=== PATIENT | female | born 1995 | race Two or more races ===

== ENCOUNTER 2018-08-21 06:30 | Emergency (ER) | payer SELFPAY ==
[2018-08-21] MEDS ORDERED: PREDNISONE 20 MG TABLET PO ONE (09:17)
[2018-08-21] MEDS ORDERED: DIPHENHYDRAMINE HCL 50 MG/ML VIAL IM ONE (09:17)
--- NOTE | 2018-08-21 09:23 | ER Document Report ---
ED Allergic Reaction - General Chief Complaint: Allergic Reaction Stated Complaint: POSSIBLE ALLERGIC REACTION Time Seen by Provider: 08/21/18 09:12 Mode of Arrival: Ambulatory Information source: Patient TRAVEL OUTSIDE OF THE [place] IN LAST 30 DAYS: No - HPI Patient complains to provider of: allergic reaction Onset: Just prior to arrival Notes: Patient is here with complaints of possible allergic reaction. The patient states she took her first dose of an unknown antibiotic this morning for urinary tract infection and developed swelling to her eyes. She does complain of some itching to the eyes. She denies any other rash. She denies any difficulty breathing or swallowing. She denies any chest pain or shortness of breath. No abdominal pain. No nausea, vomiting, diarrhea. She is taken no medications. She has a history of allergy to red dye, no other known allergies. She denies any new soaps, detergents, lotions, make-up or other things that would have come in contact only with her eyes. She denies any blurred or loss vision. She denies any eye pain. She complains of some throbbing pain to her eye lids that are swollen. This is mild, she denies any other complaints. - Related Data Allergies/Adverse Reactions: red dye Allergy (Verified 08/21/18 06:38) Past Medical History - Social History Smoking Status: Never Smoker Chew tobacco use (# tins/day): No Frequency of alcohol use: Social Drug Abuse: None Family History: Reviewed & Not Pertinent Patient has suicidal ideation: No Patient has homicidal ideation: No Neurological Medical History: Reports: Hx Migraine Renal/ Medical History: Denies: Hx Peritoneal Dialysis Review of Systems - Review of Systems -: Yes All other systems reviewed and negative Physical Exam - Vital signs Vitals: Temp Pulse Resp BP Pulse Ox 98.1 F 70 14 107/60 100 08/21/18 06:36 08/21/18 06:36 08/21/18 06:36 08/21/18 06:36 08/21/18 06:36 - Notes Notes: GENERAL: alert, cooperative, nontoxic, no distress. HEAD: normocephalic, atraumatic EYES: conjunctiva pink without discharge, mild swelling to the upper and lower eyelids. No redness. No tenderness. No vesicles. No rash. EARS: no external swelling, no external redness NOSE: atraumatic, no external swelling MOUTH/THROAT: mucous membranes moist and pink, posterior pharynx without erythema, swelling, exudate. No trismus or drooling. No lip, tongue swelling. Airway is patent. NECK: soft, supple, full range of motion, no meningismus. CHEST: no distress, lungs clear and equal throughout. No wheezing, rales, rhonchi. CARDIAC: regular rate and rhythm, no murmur, normal capillary refill, normal pulses. No peripheral edema noted. ABDOMEN: Soft, nontender. BACK: full range of motion, no CVA tenderness. EXTREMITIES: full range of motion of all extremities. No redness, no swelling. NEURO: alert and oriented x 3, no focal deficits, full range of motion of all extremities. PYSCH: appropriate mood, affect. Patient is cooperative. SKIN: pink, warm, dry, no rash. Course - Re-evaluation Re-evalutation: 08/21/18 09:20 Patient is nontoxic-appearing stable vitals. Patient here with complaints of possible allergic reaction. She took an antibiotic this morning for urinary tract infection and then developed some eye swelling. She believes that she is having an allergic reaction to the antibiotic. She denies putting anything specifically on her eyes that she would have been allergic to. At any rate, she does appear to be having a allergic reaction. No signs of anaphylaxis. No difficulty breathing or swallowing. Lungs are clear. Vital signs are stable. Patient is otherwise well-appearing. She was instructed to contact who prescribed her antibiotics to determine what she is taking to see if they can place her on a different antibiotic since she is unclear what she is taking. At this point the patient will be given a dose of Benadryl IM and prednisone orally will be discharged home with a prescription for prednisone and instructions to take Benadryl as needed for allergic reaction. Apply cool compresses to the eyes. Follow-up if not better in the next 2 days, sooner for any worsening symptoms, high fever, persistent vomiting, lip or tongue swelling, or for any further concerns. The patient's emergency department workup and current diagnosis were explained to the patient and or family. Follow-up instructions were provided. Medications if prescribed were discussed. Instructions for when to return to the emergency department including specific worrisome symptoms were discussed with the patient and/or family. - Vital Signs Vital signs: Temp Pulse Resp BP Pulse Ox 98.1 F 70 14 107/60 100 08/21/18 06:36 08/21/18 06:36 08/21/18 06:36 08/21/18 06:36 08/21/18 06:36 Discharge - Discharge Clinical Impression: Allergic reaction Qualifiers: Encounter type: initial encounter Qualified Code(s): T78.40XA - Allergy, unspecified, initial encounter Condition: Stable Disposition: HOME, SELF-CARE Instructions: Acute Allergic Reaction ([facility]), Acute Allergic Reaction to Drugs ([facility]) Additional Instructions: Stop taking the antibiotic. Contact the provider that prescribed the antibiotic and have them switch you to something different. Drink plenty of fluids. Take vvew-[id number]-[id number] Benadryl or Claritin. Take medications as prescribed. Apply cool compresses to your eyes. Follow-up if not better in the next 24 to 48 hours, sooner for worsening symptoms, high fever, difficulty breathing or swallowing, persistent vomiting, or for any further concerns. Prescriptions: Prednisone [Deltasone 20 mg Tablet] 3 tab PO DAILY 5 Days tablet Referrals: [facility] [Provider Group] - Follow up as needed
[2018-08-21 09:56] VITALS: BP 98/77
== END 2018-08-21 09:50 | disposition home or self-care (01) ==
LOC: ER 06:30
DX: T78.40XA Allergy, unspecified, initial encounter (principal); R22.0 Localized swelling, mass and lump, head; L29.9 Pruritus, unspecified; X58.XXXA Exposure to other specified factors, initial encounter; N39.0 Urinary tract infection, site not specified; R51 Headache
CPT/HCPCS: 99283; 96372; J1200; J7512

== ENCOUNTER 2018-09-16 16:37 | Emergency (ER) | payer OTHER ==
--- NOTE | 2018-09-16 17:10 | ER Document Report ---
ED Medical Screen (RME) - General Chief Complaint: Abdominal Pain Stated Complaint: ABDOMINAL PAIN Time Seen by Provider: 09/16/18 17:06 Mode of Arrival: Ambulatory Information source: Patient Notes: 23-year-old female presented to ED for pelvic cramping and vaginal bleeding. She states she is has had multiple home tests that were positive. She states last menstrual period was in June. She denies any fevers chills. Patient is alert oriented respirations regular and unlabored speaking in full sentences walks with even steady gait. I have greeted and performed a rapid initial assessment of this patient. A comprehensive ED assessment and evaluation of the patient, analysis of test results and completion of medical decision making process will be conducted by an additional ED providers. Dictation of this chart was performed using voice recognition software; therefore, there may be some unintended grammatical errors. TRAVEL OUTSIDE OF THE [place] IN LAST 30 DAYS: No - Related Data Allergies/Adverse Reactions: red dye Allergy (Verified 09/16/18 16:48) Past Medical History - Social History Chew tobacco use (# tins/day): No Frequency of alcohol use: Occasional Drug Abuse: None Neurological Medical History: Reports: Hx Migraine Renal/ Medical History: Denies: Hx Peritoneal Dialysis Physical Exam - Vital signs Vitals: Temp Pulse Resp BP Pulse Ox 98.9 F 105 H 16 132/64 H 99 09/16/18 16:52 09/16/18 16:52 09/16/18 16:52 09/16/18 16:52 09/16/18 16:52 Course - Vital Signs Vital signs: Temp Pulse Resp BP Pulse Ox 98.9 F 105 H 16 132/64 H 99 09/16/18 16:52 09/16/18 16:52 09/16/18 16:52 09/16/18 16:52 09/16/18 16:52
[2018-09-16 17:44] LABS: ABSOLUTE EOSINOPHILS # (AUTO) 0.1 10^3/uL (0.0-0.6); ABSOLUTE LYMPHOCYTES (AUTO) 2.3 10^3/uL (0.5-4.7); ABSOLUTE MONOCYTES (AUTO) 0.8 10^3/uL (0.1-1.4); ABSOLUTE NEUT (AUTO) 6.2 10^3/uL (1.7-8.2); BASOPHILS % (AUTO) 0.2 % (0-2); EOSINOPHILS % (AUTO) 0.9 % (0-6); HEMATOCRIT 33.8 % (36.0-47.0); HEMOGLOBIN 10.9 g/dL (12.0-15.5); LYMPHOCYTES % (AUTO) 24.3 % (13-45); MEAN CORPUSCULAR HEMOGLOBIN 27.2 pg (27.0-33.4); MEAN CORPUSCULAR HGB CONC 32.4 g/dL (32.0-36.0); MEAN CORPUSCULAR VOLUME 84 fl (80-97); MONOCYTES % (AUTO) 8.4 % (3-13); PLATELET COUNT 181 10^3/uL (150-450); RED BLOOD COUNT 4.02 10^6/uL (3.72-5.28); SEGMENTED NEUTROPHILS % (AUTO) 66.2 % (42-78); TOTAL CELLS COUNTED % (AUTO) 100 %; WHITE BLOOD COUNT 9.3 10^3/uL (4.0-10.5)
[2018-09-16 18:00] LABS: ALANINE AMINOTRANSFERASE 25 U/L (9-52); ALKALINE PHOSPHATASE 52 U/L (38-126); ANION GAP 10 (5-19); ASPARTATE AMINO TRANSFERASE 24 U/L (14-36); BILIRUBIN,DIRECT 0.1 mg/dL (0.0-0.4); BILIRUBIN,TOTAL 0.8 mg/dL (0.2-1.3); BLOOD UREA NITROGEN 6 mg/dL (7-20); CALCIUM 9.6 mg/dL (8.4-10.2); CARBON DIOXIDE 25 mmol/L (22-30); CHLORIDE 104 mmol/L (98-107); GLUCOSE 84 mg/dL (75-110); SODIUM 138.5 mmol/L (137-145)
--- NOTE | 2018-09-16 18:39 | RADIOLOGY REPORT (SQ) ---
EXAM DESCRIPTION: U/S OB TRANSVAGINAL W/O DOP COMPLETED DATE/TIME: 09/16/2018 6:19 pm REASON FOR STUDY: vaginal bleeding and COMPARISON: None. TECHNIQUE: Transvaginal static and realtime grayscale images acquired of the pelvis. Additional sami cted spectral and color Doppler images recorded. All images stored on PACs. bHCG: Not available. CLINICAL DATES: Not Available. LIMITATIONS: None. FINDINGS: FETUS: Single intrauterine with a yolk sac. ULTRASOUND EGA: 6 weeks 0 day ULTRASOUND LEONEL: 05/12/2019 EFW: Not applicable less than 20 weeks. CRL: 4 mm FHR: Too early to detect heart rate. SURVEY: Too early to assess. AMNIOTIC FLUID: Adequate amount. PLACENTA: Not yet developed due to early gestation. SUBCHORIONIC BLEED: No. SIZE OF BLEED: Not applicable. UTERUS: No masses. No anomalies. CERVICAL LENGTH: 3.3 Closed. RIGHT ADNEXA: Normal ovary with normal vascular flow. No adnexal free fluid. No adnexal masses. LEFT ADNEXA: Normal ovary with normal vascular flow. No adnexal free fluid. No adnexal masses. FREE FLUID: None. OTHER: No other significant finding. IMPRESSION: Single intrauterine gestation. Too early to detect heart rate. Recommend correla tion with serial beta hCGs and short-term sonographic follow-up. EGA 6 weeks 0 days Trimester of : First - 0 to 13 weeks. TECHNICAL DOCUMENTATION: JOB ID: [id number] [employer]- All Rights Reserved rev-09/16 Reading location - IP/workstation name: [email or web address]
[2018-09-16 19:01] LABS: APPEARANCE,URINE SLIGHTLY-CLOUDY; BILIRUBIN,URINE NEGATIVE (NEGATIVE); COLOR,URINE YELLOW; GLUCOSE, URINE NEGATIVE (NEGATIVE); KETONES,URINE NEGATIVE (NEGATIVE); LEUKOCYTE ESTERASE,URINE NEGATIVE (NEGATIVE); NITRITE,URINE NEGATIVE (NEGATIVE); PROTEIN,URINE NEGATIVE (NEGATIVE); URINE SPECIFIC GRAVITY 1.016; UROBILINOGEN,URINE NEGATIVE mg/dL (<2.0)
--- NOTE | 2018-09-16 19:11 | ER Document Report ---
ED GI/ - General Chief Complaint: Abdominal Pain Stated Complaint: ABDOMINAL PAIN Time Seen by Provider: 09/16/18 17:06 Primary Care Provider: [facility] [Provider Group] - Follow up as needed Mode of Arrival: Ambulatory Notes: 23-year-old female to the emergency department for evaluation of of cramping in the lower abdomen. Patient states that her breasts hurt and she has nausea and she thinks that she may be but decided to come to the emergency department to confirm her suspicions. Denies any vaginal bleeding at this time. No other complaints other than that she is hungry all of the time TRAVEL OUTSIDE OF THE [place] IN LAST 30 DAYS: No - HPI Patient complains to provider of: Abdominal pain Timing/Duration: Gradual Quality of pain: Achy Severity at maximum: Mild Severity in ED: Mild Pain Level: Denies - Related Data Allergies/Adverse Reactions: red dye Allergy (Verified 09/16/18 16:48) Past Medical History - General Information source: Patient - Social History Smoking Status: Never Smoker Chew tobacco use (# tins/day): No Frequency of alcohol use: Occasional Drug Abuse: None Lives with: Family Family History: Reviewed & Not Pertinent Patient has suicidal ideation: No Patient has homicidal ideation: No - Medical History Medical History: Negative Neurological Medical History: Reports: Hx Migraine Renal/ Medical History: Denies: Hx Peritoneal Dialysis Review of Systems - Review of Systems Notes: Constitutional: denies: Chills, Diaphoresis, Fever, Malaise, Weakness EENT: denies: Eye discharge, Blurred vision, Tearing, Double vision, Nose congestion, Nose discharge, Throat swelling, Mouth pain Cardiovascular: denies: Palpitations, Heart racing, Orthopnea, Dyspnea, Chest pain Respiratory: denies: Cough, Hurts to breathe, Wheezing, Shortness of breath Gastrointestinal: denies: Abdominal pain, Diarrhea, Nausea, Vomiting, Black stools, bright red blood in stool Genitourinary: denies: Burning, Dysuria, Discharge, Frequency, Flank pain, Hematuria Musculoskeletal: denies: Joint pain, Joint swelling, Muscle pain, Muscle stiffness, back pain Hematologic/Lymphatic: denies: Anemia, Easy bleeding, Easy bruising, Blood clots Neurological/Psychological: denies: Confusion, Dementia, Depression, Loss of consciousness Skin: No lesions, no masses, no skin breakdown, no abscesses Physical Exam - Vital signs Vitals: Temp Pulse Resp BP Pulse Ox 98.9 F 105 H 16 132/64 H 99 09/16/18 16:52 09/16/18 16:52 09/16/18 16:52 09/16/18 16:52 09/16/18 16:52 Interpretation: Normal - General General appearance: Appears well, Alert - HEENT Head: Normocephalic, Atraumatic Eyes: Normal Pupils: PERRL - Respiratory Respiratory status: No respiratory distress Chest status: Nontender Breath sounds: Normal Chest palpation: Normal - Cardiovascular Rhythm: Regular Heart sounds: Normal auscultation Murmur: No - Abdominal Inspection: Normal Distension: No distension Bowel sounds: Normal Tenderness: Nontender Organomegaly: No organomegaly - Back Back: Normal, Nontender - Extremities General upper extremity: Normal inspection, Nontender, Normal color, Normal ROM, Normal temperature General lower extremity: Normal inspection, Nontender, Normal color, Normal ROM, Normal temperature, Normal weight bearing. No: Gómez's sign - Neurological Neuro grossly intact: Yes Cognition: Normal Orientation: AAOx4 Jossue Coma Scale Eye Opening: Spontaneous Jossue Coma Scale Verbal: Oriented Jossue Coma Scale Motor: Obeys Commands Jossue Coma Scale Total: 15 Speech: Normal Motor strength normal: LUE, RUE, LLE, RLE Sensory: Normal - Psychological Associated symptoms: Normal affect, Normal mood - Skin Skin Temperature: Warm Skin Moisture: Dry Skin Color: Normal Course - Re-evaluation Re-evalutation: 09/16/18 19:11 Laboratory 09/16/18 09/16/18 09/16/18 17:18 17:18 17:18 WBC 9.3 RBC 4.02 Hgb 10.9 L Hct 33.8 L MCV 84 MCH 27.2 MCHC 32.4 RDW 13.0 Plt Count 181 Seg Neutrophils % 66.2 Lymphocytes % 24.3 Monocytes % 8.4 Eosinophils % 0.9 Basophils % 0.2 Absolute Neutrophils 6.2 Absolute Lymphocytes 2.3 Absolute Monocytes 0.8 Absolute Eosinophils 0.1 Absolute Basophils 0.0 Sodium 138.5 Potassium 4.0 Chloride 104 Carbon Dioxide 25 Anion Gap 10 BUN 6 L Creatinine 0.52 Est GFR ( Amer) > 60 Est GFR (Non-Af Amer) > 60 Glucose 84 Calcium 9.6 Total Bilirubin 0.8 Direct Bilirubin 0.1 Neonat Total Bilirubin Not Reportable Neonat Direct Bilirubin Not Reportable Neonat Indirect Bili Not Reportable AST 24 ALT 25 Alkaline Phosphatase 52 Total Protein 7.0 Albumin 4.0 Beta HCG, Quant 40183.00 H Total Beta HCG POSITIVE Urine Color Urine Appearance Urine pH Ur Specific [place] Urine Protein Urine Glucose (UA) Urine Ketones Urine Blood Urine Nitrite Urine Bilirubin Urine Urobilinogen Ur Leukocyte Esterase Urine WBC (Auto) Urine RBC (Auto) Urine Bacteria (Auto) Squamous Epi Cells Auto Urine Mucus (Auto) Urine Ascorbic Acid Blood Type O POSITIVE Rhogam Indicated RHOGAM NOT INDICATED 09/16/18 18:37 WBC RBC Hgb Hct MCV MCH MCHC RDW Plt Count Seg Neutrophils % Lymphocytes % Monocytes % Eosinophils % Basophils % Absolute Neutrophils Absolute Lymphocytes Absolute Monocytes Absolute Eosinophils Absolute Basophils Sodium Potassium Chloride Carbon Dioxide Anion Gap BUN Creatinine Est GFR ( Amer) Est GFR (Non-Af Amer) Glucose Calcium Total Bilirubin Direct Bilirubin Neonat Total Bilirubin Neonat Direct Bilirubin Neonat Indirect Bili AST ALT Alkaline Phosphatase Total Protein Albumin Beta HCG, Quant Total Beta HCG Urine Color YELLOW Urine Appearance SLIGHTLY-CLOUDY Urine pH 6.0 Ur Specific [place] 1.016 Urine Protein NEGATIVE Urine Glucose (UA) NEGATIVE Urine Ketones NEGATIVE Urine Blood NEGATIVE Urine Nitrite NEGATIVE Urine Bilirubin NEGATIVE Urine Urobilinogen NEGATIVE Ur Leukocyte Esterase NEGATIVE Urine WBC (Auto) 6 Urine RBC (Auto) 0 Urine Bacteria (Auto) TRACE Squamous Epi Cells Auto 1 Urine Mucus (Auto) OCC Urine Ascorbic Acid NEGATIVE Blood Type Rhogam Indicated Obstetrics Ultrasound 09/16/18 17:07 IMPRESSION: Single intrauterine gestation. Too early to detect heart rate. Recommend correlation with serial beta hCGs and short-term sonographic follow-up. EGA 6 weeks 0 days Trimester of : First - 0 to 13 weeks. Previous labs confirm positive no RhoGam is indicated. At this time appears to have an IUP. Nothing further. Will be follow-up for OB and DC at this time. - Vital Signs Vital signs: Temp Pulse Resp BP Pulse Ox 98.9 F 105 H 16 132/64 H 99 09/16/18 16:52 09/16/18 16:52 09/16/18 16:52 09/16/18 16:52 09/16/18 16:52 - Laboratory Result Diagrams: 09/16/18 17:18 09/16/18 17:18 Laboratory results interpreted by me: 09/16/18 09/16/18 17:18 17:18 Hgb 10.9 L Hct 33.8 L BUN 6 L Beta HCG, Quant 60870.00 H Discharge - Discharge Clinical Impression: First trimester Condition: Good Disposition: HOME, SELF-CARE Instructions: (OM) Additional Instructions: Follow-up with your [facility]W [facility]AIGHTENER of choice. Return for any worsening symptoms or concerns. Prescriptions: Multivitamin with Folic Acid [[facility] One Daily Essential Tablet] 400 mcg PO DAILY 90 Days #90 tablet Referrals: [facility] [Provider Group] - Follow up as needed
[2018-09-16 20:12] VITALS: BP 129/68
== END 2018-09-16 20:12 | disposition home or self-care (01) ==
LOC: ER 16:37
DX: O26.891 Other specified pregnancy related conditions, first trimester (principal); R10.30 Lower abdominal pain, unspecified; R11.0 Nausea; O92.29 Other disorders of breast associated with pregnancy and the puerperium; Z3A.00 Weeks of gestation of pregnancy not specified; Z91.048 Other nonmedicinal substance allergy status
CPT/HCPCS: 36415; 76817; 80053; 81001; 84702; 85025; 86900; 86901; 99284

== ENCOUNTER 2018-10-01 06:10 | Emergency (ER) | payer OTHER ==
[2018-10-01 06:20] VITALS: BP 124/68
== END 2018-10-01 08:13 | disposition left against medical advice (07) ==
LOC: ER 06:10
DX: Z53.21 Procedure and treatment not carried out due to patient leaving prior to being seen by health care provider (principal)

== ENCOUNTER 2019-01-26 14:24 | Outpatient (CLI) | payer OTHER ==
[2019-01-26 14:30] VITALS: BP 135/66
[2019-01-26 15:42] LABS: APPEARANCE,URINE CLEAR; BILIRUBIN,URINE NEGATIVE (NEGATIVE); COLOR,URINE YELLOW; GLUCOSE, URINE NEGATIVE (NEGATIVE); KETONES,URINE TRACE mg/dL (NEGATIVE); LEUKOCYTE ESTERASE,URINE NEGATIVE (NEGATIVE); NITRITE,URINE NEGATIVE (NEGATIVE); PROTEIN,URINE NEGATIVE (NEGATIVE); URINE SPECIFIC GRAVITY 1.019; UROBILINOGEN,URINE NEGATIVE mg/dL (<2.0)
[2019-01-26 16:02] LABS: URINE AMPHETAMINES SCREEN NEGATIVE; URINE BARBITURATES SCREEN NEGATIVE; URINE BENZODIAZEPINES SCREEN NEGATIVE; URINE COCAINE SCREEN NEGATIVE; URINE MARIJUANA (THC) SCREEN NEGATIVE; URINE METHADONE SCREEN NEGATIVE; URINE PHENCYCLIDINE SCREEN NEGATIVE
[2019-01-26 16:21] LABS: ABSOLUTE EOSINOPHILS # (AUTO) 0.1 10^3/uL (0.0-0.6); ABSOLUTE LYMPHOCYTES (AUTO) 2.4 10^3/uL (0.5-4.7); ABSOLUTE MONOCYTES (AUTO) 1.5 10^3/uL (0.1-1.4); ABSOLUTE NEUT (AUTO) 8.7 10^3/uL (1.7-8.2); BASOPHILS % (AUTO) 0.1 % (0-2); EOSINOPHILS % (AUTO) 0.6 % (0-6); HEMATOCRIT 28.2 % (36.0-47.0); HEMOGLOBIN 9.3 g/dL (12.0-15.5); LYMPHOCYTES % (AUTO) 18.6 % (13-45); MEAN CORPUSCULAR HEMOGLOBIN 28.2 pg (27.0-33.4); MEAN CORPUSCULAR HGB CONC 32.9 g/dL (32.0-36.0); MEAN CORPUSCULAR VOLUME 86 fl (80-97); MONOCYTES % (AUTO) 11.9 % (3-13); PLATELET COUNT 151 10^3/uL (150-450); RED BLOOD COUNT 3.29 10^6/uL (3.72-5.28); SEGMENTED NEUTROPHILS % (AUTO) 68.8 % (42-78); TOTAL CELLS COUNTED % (AUTO) 100 %; WHITE BLOOD COUNT 12.7 10^3/uL (4.0-10.5)
[2019-01-26 16:40] LABS: ALBUMIN 3.3 g/dL (3.5-5.0); ALKALINE PHOSPHATASE 75 U/L (38-126); ANION GAP 7 (5-19); ASPARTATE AMINO TRANSFERASE 23 U/L (14-36); BILIRUBIN,TOTAL 0.5 mg/dL (0.2-1.3); BLOOD UREA NITROGEN 8 mg/dL (7-20); CALCIUM 9.3 mg/dL (8.4-10.2); CARBON DIOXIDE 24 mmol/L (22-30); CHLORIDE 105 mmol/L (98-107); GLUCOSE 77 mg/dL (75-110); POTASSIUM 3.9 mmol/L (3.6-5.0); TOTAL PROTEIN 6.3 g/dL (6.3-8.2); URIC ACID 3.2 mg/dL (2.5-6.2)
--- NOTE | 2019-01-26 16:57 | RADIOLOGY REPORT (SQ) ---
EXAM DESCRIPTION: U/S ABDOMEN LIMITED W/O DOP COMPLETED DATE/TIME: 01/26/2019 4:36 pm REASON FOR STUDY: right upper quad pain COMPARISON: None. TECHNIQUE: Dynamic and static grayscale images acquired of the abdomen and recorded on PACS. Additio nal selected color Doppler and spectral images recorded. LIMITATIONS: None. FINDINGS: PANCREAS: No masses. Visualized pancreatic duct normal caliber. LIVER: No masses. Echotexture normal. LIVER VASCULATURE: Normal directional flow of the main portal vein and hepatic veins. GALLBLADDER: Contracted. No stones. Normal wall thickness. No pericholecystic fluid. ULTRASOUND-DETECTED BRYAN'S SIGN: Negative. INTRAHEPATIC DUCTS AND COMMON DUCT: CBD and intrahepatic ducts normal caliber. No filling defects. INFERIOR VENA CAVA: Normal flow. AORTA: No aneurysm. RIGHT KIDNEY: Normal size. Normal echogenicity. No solid or suspicious masses. No hydronephrosis. No calcifications. PERITONEAL AND RIGHT PLEURAL SPACE: No ascites or effusions. OTHER: Intrauterine documented but not evaluated. cardiac activity with heart rate o f 150 beats per minute. IMPRESSION: NORMAL RIGHT UPPER QUADRANT ULTRASOUND. TECHNICAL DOCUMENTATION: JOB ID: [id number] [employer]- All Rights Reserved Reading location - IP/workstation name: [email or web address]
[2019-01-26] MEDS ORDERED: FAMOTIDINE 20 MG TABLET ONE (18:32)
[2019-01-26] MEDS ORDERED: ACETAMINOPHEN 325 MG TABLET ONE (18:32)
[2019-01-26] MEDS ORDERED: ACETAMINOPHEN 325 MG TABLET PO ONE (19:31)
== END 2019-01-26 19:32 | disposition home or self-care (01) ==
LOC: EDSTATUS 14:33 → LC 14:36
PROVIDERS: ATTEND Obstetrics & Gynecology
PROC: 4A1HXCZ Monitoring of Products of Conception, Cardiac Rate, External Approach (ICD-10-PCS; principal; 2019-01-26)
DX: O26.892 Other specified pregnancy related conditions, second trimester (principal); R10.11 Right upper quadrant pain; Z3A.25 25 weeks gestation of pregnancy
CPT/HCPCS: 36415; 76705; 80053; 80307; 81001; 82150; 83615; 83690; 84550; 85025

== ENCOUNTER 2019-04-24 18:30 | Outpatient (CLI) | payer OTHER ==
[2019-04-24 19:16] LABS: APPEARANCE,URINE CLEAR; BILIRUBIN,URINE NEGATIVE (NEGATIVE); COLOR,URINE YELLOW; GLUCOSE, URINE NEGATIVE (NEGATIVE); KETONES,URINE NEGATIVE (NEGATIVE); LEUKOCYTE ESTERASE,URINE SMALL (NEGATIVE); NITRITE,URINE NEGATIVE (NEGATIVE); PROTEIN,URINE 30 mg/dL (NEGATIVE); URINE SPECIFIC GRAVITY 1.018; UROBILINOGEN,URINE NEGATIVE mg/dL (<2.0)
[2019-04-24 19:35] LABS: URINE AMPHETAMINES SCREEN NEGATIVE; URINE BARBITURATES SCREEN NEGATIVE; URINE BENZODIAZEPINES SCREEN NEGATIVE; URINE COCAINE SCREEN NEGATIVE; URINE MARIJUANA (THC) SCREEN NEGATIVE; URINE METHADONE SCREEN NEGATIVE; URINE PHENCYCLIDINE SCREEN NEGATIVE
--- NOTE | 2019-04-24 20:30 | Non Stress Test Report ---
Non Stress Test Datetime Report Generated by CPN: 04/24/2019 20:29 DEMOGRAPHIC EGA NST: 37.5 INDICATION Indication for Study (NST) Other: labor check MONITORING Time on Monitor: 04/24/2019 18:46 Time off Monitor: 04/24/2019 20:13 NST Duration: 87 NST INTERVENTIONS NST Interventions: None Physician Notified NST: Dr Mc BABY A: [id number] BABY A Movement : Present Contraction Frequency : 4-9.5 FHR Baseline : 135 Accelerations : 15X15 Decelerations : None Variability : Moderate 6-25bpm NST Review: Meets Criteria for Reactive NST NST Review and Verified By : Louise Sepulveda RN NST Results: Reactive NST REPORT Report Trigger: Send Report
== END 2019-04-24 20:20 | disposition home or self-care (01) ==
LOC: LC 18:30
PROVIDERS: ATTEND Obstetrics & Gynecology
PROC: 4A1HXCZ Monitoring of Products of Conception, Cardiac Rate, External Approach (ICD-10-PCS; principal; 2019-04-24)
DX: O47.1 False labor at or after 37 completed weeks of gestation (principal); Z3A.38 38 weeks gestation of pregnancy
CPT/HCPCS: 59025; 80307; 81005

== ENCOUNTER 2020-01-30 18:20 | Emergency (ER) | payer OTHER ==
[2020-01-30 18:27] VITALS: BP 117/62
--- NOTE | 2020-01-30 18:59 | ER Document Report ---
HPI - HPI Patient complains to provider of: left ear pain Time Seen by Provider: 01/30/20 18:50 Pain Level: 1 Context: 24-year-old female who states she is approximately 11 weeks , 3 para 2 presents to the emergency room complaining of worsening left ear pain for the past 3 months. She denies any trauma or injury. States she has not been seen for prior today. Has been taking Tylenol with some relief. Denies any recent swimming or flying. States she is feels like there is fluid in it but has not had any drainage. Has not been seen for her ear pain prior to today. Associated Symptoms: None Exacerbated by: Other - Touching Relieved by: Remaining still Similar symptoms previously: No Recently seen / treated by doctor: No - ROS Systems Reviewed and Negative: Yes All other systems reviewed and negative - EENT EENT: REPORTS: Ear Pain - left ear - NEURO Neurology: DENIES: Headache - REPRODUCTIVE Reproductive: DENIES: : Past Medical History - General Information source: Patient - Social History Smoking Status: Never Smoker Chew tobacco use (# tins/day): No Frequency of alcohol use: None Drug Abuse: None Family History: Reviewed & Not Pertinent Patient has homicidal ideation: No Neurological Medical History: Reports: Hx Migraine Renal/ Medical History: Denies: Hx Peritoneal Dialysis Vertical Provider Document - CONSTITUTIONAL Agree With Documented VS: Yes Exam Limitations: No Limitations General Appearance: Mild Distress - INFECTION CONTROL TRAVEL OUTSIDE OF THE [place] IN LAST 30 DAYS: No - HEENT HEENT: Atraumatic, Normocephalic, Tympanic Membrane Red, Tympanic Membrane Bulging - Left tympanic membrane erythematous and bulging there is a moderate amount of purulent drainage noted in the outer ear canal with erythema and swelling. Right outer ear canal without erythema or swelling. Right tympanic membrane intact.. negative: Pharyngeal Exudate, Pharyngeal Erythema - NECK Neck: Normal Inspection, Supple. negative: Lymphadenopathy-Left, Lymphadenopathy-Right - RESPIRATORY Respiratory: Breath Sounds Normal, No Respiratory Distress - CARDIOVASCULAR Cardiovascular: Regular Rate, Regular Rhythm, No Murmur - NEURO Level of Consciousness: Awake, Alert, Appropriate Motor/Sensory: No Motor Deficit, No Sensory Deficit - DERM Integumentary: Warm, Dry, No Rash Course - Re-evaluation Re-evalutation: 01/30/20 18:55 Counseled patient on diagnosis and need for oral antibiotics as well as eardrops. She was counseled on the importance of an outpatient follow-up with ENT. She will be provided with on-call physician. Tylenol as needed for pain. Patient was given strict return to the emergency room guidelines. Return for any new or worsening symptoms. All questions were answered. Patient verbalized understanding and agrees with plan of care. - Vital Signs Vital signs: Temp Pulse Resp BP Pulse Ox 98.0 F 74 16 117/62 100 01/30/20 18:49 01/30/20 18:26 01/30/20 18:26 01/30/20 18:26 01/30/20 18:26 Discharge - Discharge Clinical Impression: Left otitis media Qualifiers: Otitis media type: unspecified Qualified Code(s): H66.92 - Otitis media, unspecified, left ear Left otitis externa Qualifiers: Otitis externa type: unspecified type Chronicity: acute Qualified Code(s): H60.502 - Unspecified acute noninfective otitis externa, left ear Condition: Stable Disposition: HOME, SELF-CARE Instructions: Acetaminophen, Use of Ear Drops ([facility]), Otitis Externa ([facility]), Otitis Media ([facility]) Additional Instructions: Use eardrops and take oral antibiotics as prescribed. Tylenol as needed for pain. Outpatient follow-up with ENT as discussed. Return to the emergency room for any new or worsening symptoms. Prescriptions: Amoxicillin 1 tab PO TID #30 tab Neomy Sulf/Polymyx B Sulf/Hc [Cortisporin Otic Susp] 4 drop LFT_EAR QID #1 bottle Referrals: RINA HUFF MD [ACTIVE PROVISIONAL STAFF] - Follow up as needed ANDREWS MADDOX DO [ASSOCIATE] - Follow up tomorrow (Call as soon as possible for an outpatient follow-up appointment)
== END 2020-01-30 19:10 | disposition home or self-care (01) ==
LOC: ER 18:20
DX: O26.899 Other specified pregnancy related conditions, unspecified trimester (principal); H66.92 Otitis media, unspecified, left ear; H60.502 Unspecified acute noninfective otitis externa, left ear; H92.02 Otalgia, left ear; Z3A.00 Weeks of gestation of pregnancy not specified
CPT/HCPCS: 99283

== ENCOUNTER 2020-02-25 20:56 | Emergency (ER) | payer OTHER ==
--- NOTE | 2020-02-25 21:26 | ER Document Report ---
ED Medical Screen (RME) - General Stated Complaint: ABDOMINAL PAIN Time Seen by Provider: 02/25/20 21:23 Notes: Patient presents complaining of vaginal bleeding. Patient is currently 16 weeks G3, P1. Patient does report lower abdominal pain. No urinary symp toms, no nausea or vomiting. Patient's blood type is O+ after review of previous records. I have greeted and performed a rapid initial assessment of this patient. A comprehensive ED assessment and evaluation of the patient, analysis of test results and completion of the medical decision making process will be conducted by additional ED providers. TRAVEL OUTSIDE OF THE [place] IN LAST 30 DAYS: No - Related Data Allergies/Adverse Reactions: red dye Allergy (Verified 02/25/20 21:14) Past Medical History Neurological Medical History: Reports: Hx Migraine Renal/ Medical History: Denies: Hx Peritoneal Dialysis Physical Exam - Vital signs Vitals: Temp Pulse Resp BP Pulse Ox 98.5 F 94 18 130/59 H 98 02/25/20 21:06 02/25/20 21:06 02/25/20 21:06 02/25/20 21:06 02/25/20 21:06 - Abdominal Inspection: Gravid female Tenderness: Tender - Lower pelvic Course - Vital Signs Vital signs: Temp Pulse Resp BP Pulse Ox 98.5 F 94 18 130/59 H 98 02/25/20 21:06 02/25/20 21:06 02/25/20 21:06 02/25/20 21:06 02/25/20 21:06
--- NOTE | 2020-02-25 22:03 | ER Document Report ---
ED GI/ - General Chief Complaint: Vaginal Bleeding Stated Complaint: ABDOMINAL PAIN Time Seen by Provider: 02/25/20 21:23 Primary Care Provider: CAMILLA PARSON DO [Primary Care Provider] - Follow up as needed Notes: Patient is a 24-year-old female that comes emergency department for chief complaint of vaginal bleeding and intermittent cramping. Patient is G3, P1 at 16 weeks gestation by first trimester ultrasound. Patient states that she was just sitting down when she started feeling the bleeding, she states she bled briefly slightly heavier with possibly 1 clot and then started slowing down. She reports that the cramps are occasionally sharp but she denies current abdominal pain. She denies dizziness or passing out. Pain has been only in the lower abdomen generally. Patient is currently on vitamins and iron, she follows with local INTELLIGENCE MANAGER, she denies any surgeries, she denies any past medical history other than a previous first trimester and second trimester spontaneous miscarriage. TRAVEL OUTSIDE OF THE [place] IN LAST 30 DAYS: No - Related Data Allergies/Adverse Reactions: red dye Allergy (Verified 02/25/20 21:14) Home Medications: PRE-NATALS Past Medical History - General Information source: Patient - Social History Smoking Status: Never Smoker Frequency of alcohol use: None Drug Abuse: None Lives with: Family Family History: Reviewed & Not Pertinent Neurological Medical History: Reports: Hx Migraine Renal/ Medical History: Denies: Hx Peritoneal Dialysis Surgical Hx: Negative - Immunizations Immunizations up to date: Yes Hx Diphtheria, Pertussis, Tetanus Vaccination: Yes Review of Systems - Review of Systems Constitutional: No symptoms reported EENT: No symptoms reported Cardiovascular: No symptoms reported Respiratory: No symptoms reported Gastrointestinal: No symptoms reported Genitourinary: No symptoms reported Female Genitourinary: See HPI Musculoskeletal: No symptoms reported Skin: No symptoms reported Hematologic/Lymphatic: No symptoms reported Neurological/Psychological: No symptoms reported Physical Exam - Vital signs Vitals: Temp Pulse Resp BP Pulse Ox 98.5 F 94 18 130/59 H 98 02/25/20 21:06 02/25/20 21:06 02/25/20 21:06 02/25/20 21:06 02/25/20 21:06 - Notes Notes: GENERAL: Alert, interacts well. No acute distress. HEAD: Normocephalic, atraumatic. EYES: Pupils equal, round, and reactive to light. Extraocular movements intact. ENT: Oral mucosa moist, tongue midline. Oropharynx unremarkable. Airway patent. LUNGS: Clear to auscultation bilaterally, no wheezes, rales, or rhonchi. No respiratory distress. Non-tender chest wall. HEART: Regular rate and rhythm. No murmur ABDOMEN: Soft and benign, very slightly distended consistent with gravid abdomen, no overt tenderness noted. No rigidity or guarding. EXTREMITIES: Moves all 4 extremities spontaneously. No edema, normal radial and dorsalis pedis pulses bilaterally. No cyanosis. BACK: no cervical, thoracic, lumbar midline tenderness. No saddle anesthesia, normal distal neurovascular exam. Moves all extremities in full range of motion. NEUROLOGICAL: Alert and oriented x3. Normal speech. Cranial nerves II through XII grossly intact. Strength 5/5 in all extremities. PSYCH: Normal affect, normal mood. SKIN: Warm, dry, normal turgor. No rashes or lesions noted. Course - Re-evaluation Re-evalutation: RhoGam was not ordered by triage but records do show that patient's blood type is O+. CBC shows hemoglobin of 10.2 but this is actually better than previous hemoglobin here. This is also not microcytic. Patient is already on iron. Chemistry unremarkable. Ultrasound reviewed and shows a living intrauterine , closed cervix, no noted abnormalities. I reevaluated patient, patient has no current symptoms, has had no additional bleeding. I discussed details at length, patient is very relieved, she has no additional complaints. Patient is less than 20 weeks therefore she will not go up to INTELLIGENCE MANAGER for labor check, patient has INTELLIGENCE MANAGER follow-up already planned coming up closely. Discussed recommendations, discussed return precautions at length, patient states appreciation and agreement. Stable and well-appearing at time of discharge. - Vital Signs Vital signs: Temp Pulse Resp BP Pulse Ox 98.5 F 94 18 130/59 H 98 02/25/20 21:06 02/25/20 21:06 02/25/20 21:06 02/25/20 21:06 02/25/20 21:06 - Laboratory Result Diagrams: 02/25/20 22:25 02/25/20 22:25 Laboratory results interpreted by me: 02/25/20 02/25/20 22:25 22:25 WBC 11.0 H Hgb 10.2 L Hct 30.8 L MCH 26.9 L RDW 14.3 H Sodium 134.6 L BUN 6 L Creatinine 0.46 L Discharge - Discharge Clinical Impression: Vaginal bleeding before 22 weeks gestation, Pelvic cramping Condition: Stable Disposition: HOME, SELF-CARE Additional Instructions: Fortunately at this time no concerning findings are seen. You have a living in the uterus with no complications that are seen. I recommend pelvic rest, avoid any significant physical activity including lifting, running, sexual intercourse, etc. until cleared by INTELLIGENCE MANAGER. Follow clos e with INTELLIGENCE MANAGER for additional monitoring and recheck. Take Tylenol if needed for pain. Return if you worsen including severe worsening pain, heavy bleeding, dizziness, passing out, or any other concerning or worsening symptoms. Forms: Return to Work Referrals: CAMILLA PARSON, [Primary Care Provider] - Follow up as needed
--- NOTE | 2020-02-25 22:33 | RADIOLOGY REPORT (SQ) ---
Ultrasound OB follow-up limited on 02/25/2020 at 9:40 PM CLINICAL INDICATION: , vaginal bleeding, pelvic pain COMPARISON: None this FINDINGS: Multiple sonographic images are obtained throughout the pelvis by transabdominal approach only, both transverse and sagittal images are obtained. Cervical length measures approximately 3.1 cm and the cervix appears closed. Single living intrauterine fetus is noted with cardiac activity with a heart rate 150 bpm. Right adnexa appears unremarkable although the right ovary was not visualized. The left ovary measures approximately 2.8 x 1.8 x 2.6 cm. Flow is demonstrated within left ovary. No adnexal mass or fluid collection is noted. Fetus is currently in cephalic presentation. Placenta is anterior in location with no evidence of placenta previa or abruption. No gross abnormality is noted on limited imaging. Estimated gestational age by measurements is an approximate 16 week one day gestation. Adequate amniotic fluid is noted. Maximum vertical pocket measures 4.5 cm. IMPRESSION: Single living approximate 16 week one day intrauterine fetus with no acute abnormality noted.
[2020-02-25 22:42] LABS: ABSOLUTE EOSINOPHILS # (AUTO) 0.1 10^3/uL (0.0-0.6); ABSOLUTE LYMPHOCYTES (AUTO) 2.9 10^3/uL (0.5-4.7); ABSOLUTE MONOCYTES (AUTO) 0.9 10^3/uL (0.1-1.4); ABSOLUTE NEUT (AUTO) 7.1 10^3/uL (1.7-8.2); BASOPHILS % (AUTO) 0.2 % (0-2); EOSINOPHILS % (AUTO) 0.6 % (0-6); HEMATOCRIT 30.8 % (36.0-47.0); HEMOGLOBIN 10.2 g/dL (12.0-15.5); LYMPHOCYTES % (AUTO) 26.5 % (13-45); MEAN CORPUSCULAR HEMOGLOBIN 26.9 pg (27.0-33.4); MEAN CORPUSCULAR HGB CONC 33.2 g/dL (32.0-36.0); MEAN CORPUSCULAR VOLUME 81 fl (80-97); MONOCYTES % (AUTO) 7.8 % (3-13); PLATELET COUNT 174 10^3/uL (150-450); RED CELL DISTRIBUTION WIDTH 14.3 % (11.5-14.0); SEGMENTED NEUTROPHILS % (AUTO) 64.9 % (42-78); TOTAL CELLS COUNTED % (AUTO) 100 %
[2020-02-25 22:50] LABS: ALBUMIN 3.5 g/dL (3.5-5.0); ALKALINE PHOSPHATASE 83 U/L (38-126); ANION GAP 10 (5-19); ASPARTATE AMINO TRANSFERASE 16 U/L (14-36); BILIRUBIN,TOTAL 0.6 mg/dL (0.2-1.3); BLOOD UREA NITROGEN 6 mg/dL (7-20); CALCIUM 8.8 mg/dL (8.4-10.2); CARBON DIOXIDE 22 mmol/L (22-30); CHLORIDE 103 mmol/L (98-107); GLUCOSE 85 mg/dL (75-110); POTASSIUM 3.7 mmol/L (3.6-5.0); TOTAL PROTEIN 6.6 g/dL (6.3-8.2)
[2020-02-25 23:40] VITALS: BP 112/68
== END 2020-02-25 23:37 | disposition home or self-care (01) ==
LOC: ER 20:56
DX: O20.9 Hemorrhage in early pregnancy, unspecified (principal); O26.892 Other specified pregnancy related conditions, second trimester; R10.2 Pelvic and perineal pain; Z79.899 Other long term (current) drug therapy; Z3A.16 16 weeks gestation of pregnancy; Z87.59 Personal history of other complications of pregnancy, childbirth and the puerperium; Z91.048 Other nonmedicinal substance allergy status
CPT/HCPCS: 36415; 76805; 80053; 85025; 99284